=== PATIENT | male | born 1985 | race Caucasian/White ===

== ENCOUNTER 2019-06-03 20:06 | Emergency (ER) | payer OTHER ==
[2019-06-03 21:08] VITALS: BP 141/96; PULSE 72; TEMP 97.2; BMI 26.4
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
[2019-06-03] MEDS ORDERED: ACETAMINOPHEN 325 MG TABLET (FP) PO ONE (22:03)
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
[2019-06-03] MEDS ORDERED: ACETAMINOPHEN 325 MG TABLET (FP) ONE (22:06)
[2019-06-03] MEDS ORDERED: IBUPROFEN 600 MG TABLET (FP) PO ONE ×2 (22:33→22:36)
== END 2019-06-03 22:49 | disposition home or self-care (01) ==
LOC: JERFT 20:06
DX: M54.2 Cervicalgia (principal); V43.52XA Car driver injured in collision with other type car in traffic accident, initial encounter; Y93.89 Activity, other specified; Y92.410 Unspecified street and highway as the place of occurrence of the external cause
CPT/HCPCS: 70450-TC; 72125-TC; 99282-25